=== PATIENT | female | born 1995 | race Caucasian/White ===

== ENCOUNTER 2017-10-30 15:33 | Outpatient (CLI) | payer OTHER ==
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
== END 2017-10-30 15:34 | disposition home or self-care (01) ==
LOC: SCSMRI 15:33
PROVIDERS: ATTEND Orthopaedic Surgery
DX: S83.005A Unspecified dislocation of left patella, initial encounter (principal); R60.0 Localized edema; M25.462 Effusion, left knee